=== PATIENT | female | born 1945 | race Caucasian/White ===

== ENCOUNTER 2016-10-13 10:20 | Emergency (ER) | payer MEDICARE, OTHER ==
--- NOTE | 2016-10-13 10:52 | ED ---
General Adult HPI - General Chief complaint: Needlestick/Exposure Stated complaint: Bat Encounter Time Seen by Provider: 10/13/16 10:43 Source: patient Mode of arrival: ambulatory Limitations: no limitations - History of Present Illness Initial comments: This is a 71-year-old female presents emergency department for evaluation after being in the same room as a bat. The patient states that she had some roof work done partially 6 days ago. That evening she noted that a bat was flying around her room. She did not note any bites or lesions at that time. She had that taken out at home the next day. She states that she does believe that the bat was on the bed with her however she denies having any bites. She denies having any symptoms over the last 6 days. No headaches, fevers, chills, muscle aches, or any other symptoms. She was advised by her niece who is a physician to be evaluated. She currently denies any physical complaints. She states that she is a little bit nervous because of what her niece told her. No other complaints. - Related Data Home Medications Medication Instructions Recorded Confirmed Calcium Citrate 500 mg PO HS 07/01/15 07/01/15 Cholecalciferol [Vitamin D3] 3,000 unit PO DAILY 07/01/15 07/01/15 Fluticasone Propionate [Flonase 1 spray EA NOSTRIL DAILY PRN 07/01/15 07/01/15 Allergy Relief] Multivitamin/Iron/Folic Acid 1 tab PO DAILY 07/01/15 07/01/15 [Centrum Complete Multivit Tab] Raloxifene [Evista] 60 mg PO DAILY 07/01/15 07/01/15 Simvastatin [Zocor] 5 mg PO HS 07/01/15 07/01/15 prednisoLONE ACETATE 1% OPHTH 1 drops LEFT EYE HS 07/01/15 07/01/15 [Pred Forte 1%] Allergies Allergy/AdvReac Type Severity Reaction Status Date / Time No Known Allergies Allergy Verified 10/13/16 10:34 Review of Systems ROS Statement: Those systems with pertinent positive or pertinent negative responses have been documented in the HPI. ROS Other: All systems not noted in ROS Statement are negative. Past Medical History Past Medical History: Hyperlipidemia Additional Past Medical History / Comment(s): SVT from age of [age] History of Any Multi-Drug Resistant Organisms: None Reported Past Surgical History: Adenoidectomy, Tonsillectomy Additional Past Surgical History / Comment(s): catarcts, cyst removed thryoid, Past Anesthesia/Blood Transfusion Reactions: No Reported Reaction Past Psychological History: No Psychological Hx Reported Smoking Status: Former smoker Past Alcohol Use History: None Reported, Occasional Past Drug Use History: None Reported - Past Family History Mother Family Medical History: Diabetes Mellitus General Exam - General Exam Comments Initial Comments: Constitutional: Awake alert Appears comfortable Head: Normocephalic atraumatic Eyes: no conjunctival injection No scleral icterus EOMI, pupils are 3 mm reactive bilaterally Neck: No JVD Supple Heart: Regular rate rhythm normal S1-S2 no murmurs Lungs: Clear to auscultation bilaterally No wheezing No rales Abdomen: Soft nondistended nontender Extremities: Non edematous DP pulses intact Radial pulses intact, no bites seen on bilateral upper extremities, bilateral lower Chevys, or trunk or chest. The patient denies seeing any bites at home. Neuro: A&Ox3 renal nerves II through XII are grossly intact, 5-5 strength in bilateral upper and lower Chevys, no ataxia with gait or movement, sensation intact in all extremities Psych: Appropriate mood and affect Limitations: no limitations Course Vital Signs 10/13/16 10:30 Temperature 97.9 F Pulse Rate 101 H Respiratory 18 Rate Blood Pressure 142/83 O2 Sat by Pulse 99 Oximetry Medical Decision Making - Medical Decision Making This is a 8-year-old female who came in for evaluation after being exposed to a bat. She has no lesions. No signs of rabies on physical exam. The exposure was 6 days ago and I would expect that the patient would have symptoms by this time. At this time I feel the patient can go home and follow-up the primary doctor. I do not recommend rabies vaccination at this time. I told her that if she did develop any symptoms she can return emergency Department. All questions were answered. Disposition Clinical Impression: Well adult health check Disposition: HOME SELF-CARE Condition: Stable Instructions: Rabies (ED) Additional Instructions: Please monitor your symptoms for fevers, chills, headaches, or personality changes. Follow-up with your regular doctor for reevaluation couple of days. Referrals: None,Stated [Primary Care Provider] - 1-2 days
[2016-10-13] MEDS ORDERED: RABIES VACCINE (PCEC) 2.5 UNIT KIT IM ONE (11:06)
[2016-10-13] MEDS: RABIES IMMUNE GLOB 150 UNIT/ML 10 ML VIAL IM ONE ×2 (11:40→12:11)
[2016-10-13 12:28] VITALS: BP 131/81; PULSE 93; RESP 14; TEMP 98.1
== END 2016-10-13 12:26 | disposition home or self-care (01) ==
LOC: EC 10:20
DX: Z00.00 Encounter for general adult medical examination without abnormal findings (principal); E78.5 Hyperlipidemia, unspecified; Z87.891 Personal history of nicotine dependence; Z79.899 Other long term (current) drug therapy; Z79.52 Long term (current) use of systemic steroids
CPT/HCPCS: 90375; 90471; 90675; 96372; 99283

== ENCOUNTER 2018-04-22 15:24 | Emergency (ER) | payer MEDICARE, OTHER ==
[2018-04-22 15:59] VITALS: RESP 16; TEMP 98.2
[2018-04-22 17:32] VITALS: BP 134/80; PULSE 91
--- NOTE | 2018-04-22 17:36 | ED ---
General Adult HPI - General Chief complaint: Recheck/Abnormal Lab/Rx Stated complaint: High BP Time Seen by Provider: 04/22/18 17:12 Source: patient, RN notes reviewed Mode of arrival: wheelchair Limitations: no limitations - History of Present Illness Initial comments: Patient's a 73-year-old female presented to the emergency room today with chief complaint of elevated blood pressure. She does admit that approximately 8 months ago she was diagnosed with hypertension and placed on a low-dose Cozaar. She states at the time she was going through treatments for breast cancer. She states that 3 months ago she went to the boiler control room operator and that her off of the blood pressure medication states he thought was related to stress that she was going to previously asked her blood pressure had normalized. She states that she does check it routinely. Woke up this morning he had a blood pressure of 118/88. She states she waited our checked it again and it went up to 126/80's. She states she waited another hour was still getting an elevated blood pressure took half of a Cozaar. She states she went to lunch came back and checked it again and had a blood pressure reading of 155. She states she came concerns that she came here to the hospital. She states she feels much better at this time. She states she had similar elevated blood pressure at triage which she has had no other symptoms. She doesn't that she felt some tingling sensation to her toes bilaterally earlier but is not sure if she is just over thinking things at the time. She states she is completely asymptomatic at this time feeling much better. She states she feels comfortable following up with the family doctor. She denies any other complaints or symptoms. Patient denies any recent fever, chills, shortness of breath, chest pain, back pain, abdominal pain, nausea or vomiting, numbness or tingling, headaches or visual changes, or any other complaints. - Related Data Home Medications Medication Instructions Recorded Confirmed Calcium Citrate 500 mg PO HS 07/01/15 04/22/18 Cholecalciferol [Vitamin D3] 3,000 unit PO DAILY 07/01/15 04/22/18 Multivitamin/Iron/Folic Acid 1 tab PO DAILY 07/01/15 04/22/18 [Centrum Complete Multivit Tab] Simvastatin [Zocor] 5 mg PO HS 07/01/15 04/22/18 Anastrozole [Arimidex] 1 mg PO DAILY 04/22/18 04/22/18 Allergies Allergy/AdvReac Type Severity Reaction Status Date / Time No Known Allergies Allergy Verified 04/22/18 17:15 Review of Systems ROS Statement: Those systems with pertinent positive or pertinent negative responses have been documented in the HPI. ROS Other: All systems not noted in ROS Statement are negative. Past Medical History Past Medical History: Cancer, Hyperlipidemia, Hypertension Additional Past Medical History / Comment(s): SVT from age of [age], breast cancer History of Any Multi-Drug Resistant Organisms: None Reported Past Surgical History: Adenoidectomy, Tonsillectomy Additional Past Surgical History / Comment(s): catarcts, cyst removed thryoid, Past Anesthesia/Blood Transfusion Reactions: No Reported Reaction Past Psychological History: No Psychological Hx Reported Smoking Status: Former smoker - Past Family History Mother Family Medical History: Diabetes Mellitus General Exam - General Exam Comments Initial Comments: General: The patient is awake and alert, in no distress, and does not appear acutely ill. Manual blood pressure was 134/80. Pulse 91. Eye: extra-ocular movements are intact. No nystagmus. There is normal conjunctiva bilaterally. No signs of icterus. Ears, nose, mouth and throat: There are moist mucous membranes and no oral lesions. Neck: The neck is supple, there is no tenderness or JVD. Cardiovascular: There is a regular rate and rhythm. No murmur, rub or gallop is appreciated. Respiratory: Lungs are clear to auscultation, respirations are non-labored, breath sounds are equal. No wheezes, stridor, rales, or rhonchi. Gastrointestinal: Soft, non-distended, non-tender abdomen without masses or organomegaly noted. There is no rebound or guarding present. No CVA tenderness. Bowel sounds are unremarkable. Musculoskeletal: Normal ROM, no tenderness. Sensation intact. Neurological: A&O x 3. CN II-XII intact, There are no obvious motor or sensory deficits. Coordination appears grossly intact. Speech is normal. Skin: Skin is warm and dry and no rashes or lesions are noted. Psychiatric: Cooperative, appropriate mood & affect, normal judgment. Limitations: no limitations Course Vital Signs 04/22/18 15:56 Temperature 98.2 F Pulse Rate 111 H Respiratory 16 Rate Blood Pressure 144/81 O2 Sat by Pulse 99 Oximetry Medical Decision Making - Medical Decision Making Patient's recent blood pressure was 134/80. Pulse was 91. Patient asymptomatic here in emergency room. Denies any complaints. Options were discussed with patient about lab work here in the emergency room. She has declined. She states she will follow with her family doctor. Advised return here to emergency room for any increase or worsening symptoms. Otherwise continue monitoring blood pressure checking it at the Same time daily. Disposition Clinical Impression: Elevated blood pressure reading Disposition: HOME SELF-CARE Condition: Good Instructions: Hypertension (ED) Additional Instructions: Please continue to check blood pressure at the same time each day as discussed. Please follow-up the family doctor over the next 1-2 days. Please return here to the emergency room for any other concerns. Is patient prescribed a controlled substance at d/c from ED?: No Referrals: Nonstaff,Physician [Primary Care Provider] - 1-2 days Time of Disposition: 17:35
== END 2018-04-22 17:53 | disposition home or self-care (01) ==
LOC: EC 15:24
DX: I10 Essential (primary) hypertension (principal); E78.5 Hyperlipidemia, unspecified; Z85.3 Personal history of malignant neoplasm of breast; Z87.891 Personal history of nicotine dependence; Z79.899 Other long term (current) drug therapy
CPT/HCPCS: 99283